=== PATIENT | male | born 1965 | race Hispanic/Latino ===

== ENCOUNTER 2017-10-15 09:45 | Day surgery (SDC) | payer BC ==
[~2017-10-15] VITALS: Ht 180.3 cm; Wt 111.1 kg
[~2017-10-15 09:45] MED LIST: BOOSTRIX IM; IBUPROFEN200 MG PO; LIPITOR20 MG PO
[2017-10-15] MEDS ORDERED: ADVIL200 MG PO (10:34)
[2017-10-15 12:19] VITALS: BP 102/59
== END 2017-10-15 12:30 | disposition home or self-care (01) | DRG 951 ==
LOC: ENDO 09:45
PROVIDERS: ATTEND Internal Medicine Gastroenterology
PROC: 0DBN8ZX Excision of Sigmoid Colon, Via Natural or Artificial Opening Endoscopic, Diagnostic (ICD-10-PCS; principal; 2017-10-15)
DX: Z12.11 Encounter for screening for malignant neoplasm of colon (principal); E78.00 Pure hypercholesterolemia, unspecified; K63.5 Polyp of colon; K64.4 Residual hemorrhoidal skin tags; K57.30 Diverticulosis of large intestine without perforation or abscess without bleeding; K64.8 Other hemorrhoids; K21.9 Gastro-esophageal reflux disease without esophagitis

== ENCOUNTER 2022-06-30 11:23 | Emergency (ER) | payer BC ==
[~2022-06-30] VITALS: Ht 180.3 cm; Wt 111.1 kg
[~2022-06-30 11:23] MED LIST changes: +ADVIL200 MG PO
[2022-06-30 11:34] VITALS: BP 138/87
[2022-06-30 12:00] VITALS: BP 129/80
[2022-06-30 12:30] VITALS: BP 127/83
[2022-06-30] MEDS ORDERED: AMOX/K CLAV875 M1 PO (12:52)
[2022-06-30] MEDS ORDERED: TRAMADOL HYDROC50 M1 PO (12:52)
[2022-06-30] MEDS ORDERED: MOTRIN800 MG PO (12:52)
[2022-06-30 13:00] VITALS: BP 133/77
== END 2022-06-30 13:02 | disposition home or self-care (01) | DRG 605 ==
LOC: ED 11:23
PROC: 0HQHXZZ Repair Right Upper Leg Skin, External Approach (ICD-10-PCS; principal; 2022-06-30)
PROC: 0HQDXZZ Repair Right Lower Arm Skin, External Approach (ICD-10-PCS; 2022-06-30)
DX: S71.151A Open bite, right thigh, initial encounter (principal); S61.551A Open bite of right wrist, initial encounter; W54.0XXA Bitten by dog, initial encounter; Y92.009 Unspecified place in unspecified non-institutional (private) residence as the place of occurrence of the external cause